=== PATIENT | female | born 1980 | race Native Hawaiian/Other Pacific Islander ===

== ENCOUNTER 2016-10-09 08:46 | Emergency (ER) | payer BC ==
[~2016-10-09] VITALS: Ht 170.2 cm; Wt 77.1 kg
[~2016-10-09 08:46] MED LIST: AMOXICILLIN ER775 MG PO; ATIVAN0.5 MG PO; CLON1TAB18 PO; HYDR-2748 PO; LEXAPRO20 MG PO; METF500T PO; METRONIDAZOLE500 MG PO; VALTREX1 GM PO
[2016-10-09 10:00] VITALS: BP 120/70; TEMP 98.1
== END 2016-10-09 10:11 | disposition home or self-care (01) ==
LOC: ED 08:46
DX: K02.9 Dental caries, unspecified (principal); K04.7 Periapical abscess without sinus; R68.84 Jaw pain
CPT/HCPCS: 96372; 99283; J0696; J1885

== ENCOUNTER 2017-12-05 17:55 | Emergency (ER) | payer OTHER ==
[~2017-12-05] VITALS: Ht 167.6 cm; Wt 72.6 kg
[2017-12-05 18:13] VITALS: BP 117/82; TEMP 98
== END 2017-12-05 19:30 | disposition home or self-care (01) ==
LOC: ED 17:55
DX: S93.402A Sprain of unspecified ligament of left ankle, initial encounter (principal); S96.912A Strain of unspecified muscle and tendon at ankle and foot level, left foot, initial encounter; X50.1XXA Overexertion from prolonged static or awkward postures, initial encounter
CPT/HCPCS: 99282

== ENCOUNTER 2019-08-31 13:45 | Emergency (ER) | payer BC ==
[~2019-08-31] VITALS: Ht 165.1 cm; Wt 74.8 kg
[2019-08-31 13:50] VITALS: TEMP 97.9
[2019-08-31 14:52] VITALS: BP 117/69
== END 2019-08-31 15:04 | disposition home or self-care (01) ==
LOC: ED 13:45
DX: S90.112A Contusion of left great toe without damage to nail, initial encounter (principal); W20.8XXA Other cause of strike by thrown, projected or falling object, initial encounter
CPT/HCPCS: 96372; 99283; J1885

== ENCOUNTER 2020-10-30 17:13 | Emergency (ER) | payer BC ==
[~2020-10-30] VITALS: Ht 165.1 cm; Wt 81.6 kg
[2020-10-30 17:23] VITALS: TEMP 97.8
[2020-10-30 18:30] LABS: PLATELET COUNT 241 K/uL (152-353)
[2020-10-30 18:37] LABS: POTASSIUM 4.1 mmol/L (3.6-5.2)
[2020-10-30 18:46] LABS: PARTIAL THROMBOPLASTIN TIME 23.4 SECONDS (24.5-33.6)
[2020-10-30 19:05] VITALS: BP 111/75
== END 2020-10-30 19:20 | disposition home or self-care (01) ==
LOC: ED 17:13
PROVIDERS: Family Medicine
DX: H53.2 Diplopia (principal); R42 Dizziness and giddiness
CPT/HCPCS: 36415; 80053; 80307; 81000; 85027; 85610; 85730; 99283

== ENCOUNTER 2020-11-08 13:30 | Outpatient (CLI) | payer BC | END 2020-11-08 20:11 | disposition home or self-care (01) | LOC: MRI 13:30 | PROVIDERS: ATTEND Nurse Practitioner Family | DX: R42 Dizziness and giddiness (principal); H53.2 Diplopia; G43.709 Chronic migraine without aura, not intractable, without status migrainosus ==

== ENCOUNTER → 2021-01-07 | Outpatient (CLI) | payer BC ==
[2021-01-07 20:39] LABS: PLATELET COUNT 286 K/uL (152-353); SODIUM 142 mmol/L (136-145)
== END ==
LOC: LABW 19:45
PROVIDERS: ATTEND Psychiatry & Neurology Neurology
DX: Z01.818 Encounter for other preprocedural examination (principal); D25.9 Leiomyoma of uterus, unspecified
CPT/HCPCS: 36415; 80053; 83036; 84702; 85027; 86900; 86901

== ENCOUNTER 2021-03-19 07:56 | Outpatient (CLI) | payer BC | END 2021-03-19 19:08 | disposition home or self-care (01) | LOC: US 07:56 | PROVIDERS: ATTEND Nurse Practitioner Family | DX: R10.9 Unspecified abdominal pain (principal) ==

== ENCOUNTER 2021-03-25 22:38 | Emergency (ER) | payer BC ==
[~2021-03-25] VITALS: Ht 165.1 cm; Wt 81.6 kg
[2021-03-26 02:05] VITALS: BP 118/74; TEMP 98.5
== END 2021-03-26 02:05 | disposition home or self-care (01) ==
LOC: ED 22:38
DX: M26.623 Arthralgia of bilateral temporomandibular joint (principal)
CPT/HCPCS: 99283

== ENCOUNTER 2021-05-13 16:27 | Outpatient (CLI) | payer BC, OTHER | END 2021-05-13 21:20 | disposition home or self-care (01) | LOC: RAD 16:27 | PROVIDERS: ATTEND Nurse Practitioner Family | DX: U07.1 COVID-19 (principal); Z20.828 Contact with and (suspected) exposure to other viral communicable diseases ==

== ENCOUNTER 2022-04-08 11:37 | Outpatient (CLI) | payer BC | END 2022-04-08 19:11 | disposition home or self-care (01) | LOC: RAD 11:37 | PROVIDERS: ATTEND Nurse Practitioner Family | DX: R09.89 Other specified symptoms and signs involving the circulatory and respiratory systems (principal); R05.8 Other specified cough ==

== ENCOUNTER 2022-04-21 17:18 | Emergency (ER) | payer BC ==
[~2022-04-21] VITALS: Ht 165.1 cm; Wt 77.1 kg
[2022-04-21 17:18] VITALS: TEMP 99.4
[2022-04-21 19:17] LABS: PLATELET COUNT 187 K/uL (152-353)
[2022-04-21 19:29] LABS: POTASSIUM 3.2 mmol/L (3.6-5.2); SODIUM 140 mmol/L (136-145)
[2022-04-21 21:25] VITALS: BP 96/62
== END 2022-04-21 21:38 | disposition home or self-care (01) ==
LOC: ED 17:18
PROVIDERS: Emergency Medicine Emergency Medical Services
DX: U07.1 COVID-19 (principal); J40 Bronchitis, not specified as acute or chronic; F17.210 Nicotine dependence, cigarettes, uncomplicated
CPT/HCPCS: 36415; 80053; 81002; 84484; 85027; 85379; 87040; 87651; 93005; 96365; 96375; 99284; J0696; J1885; J2270; J2405; J2930

== ENCOUNTER 2022-07-10 09:52 | Emergency (ER) | payer BC ==
[~2022-07-10] VITALS: Ht 165.1 cm; Wt 72.6 kg
[2022-07-10 10:01] VITALS: TEMP 97.8
[2022-07-10 10:53] LABS: PLATELET COUNT 225 K/uL (152-353)
[2022-07-10 10:58] LABS: POTASSIUM 3.2 mmol/L (3.6-5.2)
[2022-07-10 12:26] VITALS: BP 102/61
== END 2022-07-10 12:27 | disposition home or self-care (01) ==
LOC: ED 09:52
PROVIDERS: Family Medicine
DX: R06.4 Hyperventilation (principal); R06.09 Other forms of dyspnea
CPT/HCPCS: 36600; 80053; 82805; 83880; 84484; 85027; 85379; 87040; 93005; 99283

== ENCOUNTER 2023-01-09 09:36 | Outpatient (CLI) | payer OTHER | END 2023-01-09 19:14 | disposition home or self-care (01) | LOC: RESP 09:36 | PROVIDERS: ATTEND Internal Medicine Cardiovascular Disease | DX: I10 Essential (primary) hypertension (principal); R07.89 Other chest pain ==

== ENCOUNTER 2023-01-12 17:46 | Outpatient (CLI) | payer OTHER | END 2023-01-12 19:31 | disposition home or self-care (01) | LOC: RAD 17:46 | PROVIDERS: ATTEND Physician Assistant Medical | DX: M25.562 Pain in left knee (principal); M25.561 Pain in right knee ==